=== PATIENT | male | born 1975 | race African-American/Black ===

== ENCOUNTER 2017-02-21 10:53 | Emergency (ER) | payer SELFPAY ==
--- NOTE | 2017-02-21 11:30 | RAD ---
AP PELVIS 1 VIEW: Date: 02/21/17 HISTORY: Pelvic pain. Fall from horse. FINDINGS: Bilateral pedicle screws and vertical rods are in place at the S1-2 levels. No perihardware lucency is evident. There are mild degenerative changes involving each hip. Sacral ala and pelvic rings are intact. IMPRESSION: Postoperative and mild degenerative changes. No acute osseous abnormalities are demonstrated. POS: [facility]
== END 2017-02-21 11:39 | disposition home or self-care (01) ==
LOC: BURERS 10:53
DX: S30.1XXA Contusion of abdominal wall, initial encounter (principal); J45.909 Unspecified asthma, uncomplicated; F17.210 Nicotine dependence, cigarettes, uncomplicated; Z79.891 Long term (current) use of opiate analgesic; Z79.899 Other long term (current) drug therapy; V80.919A Animal-rider injured in unspecified transport accident, initial encounter; Y93.52 Activity, horseback riding
CPT/HCPCS: 72170

== ENCOUNTER → 2017-11-11 | Emergency (ER) | payer OTHER, SELFPAY | LOC: BURERS 09:41 | DX: F07.81 Postconcussional syndrome (principal); G89.29 Other chronic pain; J45.909 Unspecified asthma, uncomplicated; F17.210 Nicotine dependence, cigarettes, uncomplicated; Z79.891 Long term (current) use of opiate analgesic; Z79.899 Other long term (current) drug therapy ==

== ENCOUNTER 2018-04-07 23:02 | Emergency (ER) | payer OTHER, SELFPAY ==
[~2018-04-07 23:02] MED LIST: Iopamidol 370 76% 100 ML VIAL ONE
[2018-04-07] MEDS ORDERED: Morphine 4 MG/ML Carpuject ONE (23:25)
[2018-04-07 23:46] LABS: ALT (SGPT) 24 U/L (8-55); AST (SGOT) 18 U/L (5-34); Alkaline Phosphatase 71 U/L (40-150); Anion Gap 13 mmol/L (10-20); BUN (Urea Nitrogen) 11 mg/dL (8.9-20.6); Bilirubin, Total Less than 0.2 mg/dL (0.2-1.2); Calc. Creatinine Clearance 0 mL/min (70-130); Calcium 9.3 mg/dL (7.8-10.44); Carbon Dioxide 23 mmol/L (22-29); Chloride 106 mmol/L (98-107); Estimated GFR-MDRD Greater than 90; Globulin 3.1 g/dL (2.4-3.5); Glucose 99 mg/dL (70-105); Lipase 33 U/L (8-78); Potassium 3.8 mmol/L (3.5-5.1); Protein, Total 7.1 g/dL (6.0-8.3); Sodium 138 mmol/L (136-145)
[2018-04-07 23:49] LABS: Eosinophils 2 % (0-10); Hemoglobin 15.2 g/dL (14.0-18.0); Large Platelets SLIGHT; Lymphocytes 39 % (21-51); MDiff Complete? YES; Mean Corpuscular Hemoglobin 28.4 pg (27.0-31.0); Mean Platelet Volume 15.5 fL (7.4-10.4); Monocytes 8 % (0-10); Neutrophil 50 % (42-75); PLT Morphology Comment Appears Adequate; Platelet Count 150 thou/uL (130-400); RBC Distribution Width 13.2 % (11.5-14.5); RBC Morphology Normal; Red Blood Cell (RBC) Count 5.35 mill/uL (4.70-6.10); Vacuoles SLIGHT; White Blood Cell (WBC) Count 6.8 thou/uL (4.8-10.8)
[2018-04-08] LABS: Bilirubin Negative (Negative); Blood, Urine Trace (Negative); Clarity Clear (Clear); Glucose, Urine (Dipstick) Negative (Negative); Leukocyte Negative (Negative); Nitrite Negative (Negative); Protein, Urine (Dipstick) Negative (Neg-Trace); Urobilinogen 0.2 mg/dL (0.2-1.0)
[2018-04-08 00:05] LABS: Bacteria/HPF None Seen HPF (None Seen); RBC/HPF 0-3 HPF (0-3); Squamous Epithelial None Seen HPF (0-3); WBC/HPF None Seen HPF (0-3)
[2018-04-08] MEDS ORDERED: methylPREDNISolone Sod Succ/PF 125 MG/2 ML VIAL ONE (01:03)
[2018-04-08] MEDS ORDERED: Morphine 4 MG/ML Carpuject ONE (01:05)
--- NOTE | 2018-04-08 09:15 | CT ---
PRELIMINARY REPORT/[facility]/EMERGENTY AFTER-HOURS PROCEDURE Addendum created by Sony Baptiste MD on 04/08/2018 1:44 AM Central Time ([place] & [place]) ADDENDUM: Typographical error within the stomach and bowel section of the findings, as well as in impression #1 as follows: Please replace references to "arteritis" with "diverticulitis." These results were discu ssed with Dr. Fuentes at 11:44 PM 04/07/18. Initial Report created on 04/08/2018 12:32 AM Central Time ([place] & [place]) EXAM: CT Abdomen and Pelvis With Intravenous Contrast CLINICAL HISTORY: 42 years old, male; Pain; Abdominal pain; Other: Rlq; Prior surgery; Surgery date: 6+ months; Surgery type: Back surg 2006; Patient HX: Onset today rlq pain TECHNIQUE: Axial computed tomography images of the abdomen and pelvis with intravenous contrast. All CT scans at this facility use at least one of these dose optimization techniques: automated exposure control; mA and/or kV adjustment per patient size (includes targeted exams where dose is matched to clinical indication); or iterative reconstruction. CONTRAST: 95 mL of ISOVIEW 370 administered intravenously. COMPARISON: No relevant prior studies available. FINDINGS: Lung bases: Normal. No mass. No consolidation. ABDOMEN: Liver: Normal. Gallbladder and bile ducts: Normal. Pancreas: Normal. Spleen: Normal. Adrenals: Normal. Kidneys and ureters: Normal. Stomach and bowel: Colonic diverticulosis, with acute arteritis involving the distal ascending colon, where there is wall thickening in addition associated inflammatory stranding. No perforation or absc ess. PELVIS: Appendix: Appendix normal. Bladder: Normal. Reproductive: Normal as visualized. ABDOMEN and PELVIS: Intraperitoneal space: Normal. No free air. No significant fluid collection. Bones/joints: L5-S1 discectomy and posterior fusion changes, without acute complications. No dislocat ion. Soft tissues: Normal. Vasculature: Multiple phleboliths in the pelvis. No abdominal aortic aneurysm. Lymph nodes: Normal. IMPRESSION: 1. Colonic diverticulosis, with acute arteritis involving the distal ascending colon, where there is wall thickening in addition associated inflammatory stranding. No perforation or abscess. Recommend followup after therapy to ensure resolution of these findings, as colonic carcinoma could have a behzad lar appearance. 2. Incidental/non-acute findings are described above. Thank you for allowing us to participate in the care of your patient. Dictated and Authenticated by: Sony Baptiste MD 04/08/2018 12:32 AM Central Time ([place] & [place]) FINAL REPORT CT ABDOMEN AND PELVIS WITH CONTRAST: Date: 04/07/[address] of the abdomen and pelvis was performed for evaluation of abdominal pain. Axial slices were acquired, and coronal and sagittal reconstructions were done. Comparison made with the 10/12/17 study from [facility]. FINDINGS: The lung bases are clear. Liver, spleen, pancreas, adrenal glands, kidneys, gallbladder, and abdominal aorta all appear normal. Colonic diverticulosis is present, along with inflammatory change around the proximal ascending colon just beneath the liver. This is a new finding and most likely represents diverticulitis. The bowel e lsewhere showed no dilation or worrisome change. No free air or free fluid seen. CT of the pelvis shows no pelvic masses, fluid collections, or inflammatory changes. There has been p rior fusion of L5-S1 with pedicle screws. IMPRESSION: Findings most consistent with diverticulitis involving the proximal ascending colon just beneath the liver. Follow-up after resolution should be done to ensure there is no other underlying pathology. Report in agreement with preliminary reading by Delon. POS: [facility]
[2018-04-10 04:17] LABS: Chlamydia by PCR Not Detected (NotDetected); GC by PCR Not Detected (NotDetected)
== END 2018-04-08 01:30 | disposition short-term general hospital (02) ==
LOC: BURERS 23:02
DX: K57.32 Diverticulitis of large intestine without perforation or abscess without bleeding (principal); I10 Essential (primary) hypertension; J45.909 Unspecified asthma, uncomplicated; F17.210 Nicotine dependence, cigarettes, uncomplicated; Z79.899 Other long term (current) drug therapy
CPT/HCPCS: 74177; 80053; 81003; 81015; 83605; 83690; 85025; 85652; 87491; 87591; 96374; 96375; 96376; A4216; J2270; J2930

== ENCOUNTER 2018-04-13 10:57 | Emergency (ER) | payer SELFPAY ==
[2018-04-13] MEDS ORDERED: Ketorolac Tromethamine 30 MG/ML VIAL ONE (11:28)
[2018-04-13 11:34] LABS: Bilirubin Negative (Negative); Blood, Urine Negative (Negative); Clarity Clear (Clear); Glucose, Urine (Dipstick) Negative (Negative); Leukocyte Trace (Negative); Nitrite Negative (Negative); Protein, Urine (Dipstick) Negative (Neg-Trace); Specific Gravity, Urine 1.025 (1.005-1.030); Urobilinogen 0.2 mg/dL (0.2-1.0); pH, Urine 6.5 (5.0-9.0)
[2018-04-13 11:46] LABS: ALT (SGPT) 28 U/L (8-55); AST (SGOT) 21 U/L (5-34); Albumin 3.9 g/dL (3.5-5.0); Alkaline Phosphatase 72 U/L (40-150); Anion Gap 12 mmol/L (10-20); BUN (Urea Nitrogen) 12 mg/dL (8.9-20.6); Bilirubin, Total 0.2 mg/dL (0.2-1.2); Calc. Creatinine Clearance 0 mL/min (70-130); Carbon Dioxide 22 mmol/L (22-29); Chloride 107 mmol/L (98-107); Estimated GFR-MDRD 89; Globulin 2.9 g/dL (2.4-3.5); Glucose 115 mg/dL (70-105); Lipase 40 U/L (8-78); Protein, Total 6.8 g/dL (6.0-8.3); Sodium 137 mmol/L (136-145)
[2018-04-13 11:47] LABS: CKMB 2.7 ng/mL (0-6.6); Troponin I Less than 0.010 ng/mL (< 0.028)
[2018-04-13 11:56] LABS: Bacteria/HPF Rare-Few HPF (None Seen); RBC/HPF None Seen HPF (0-3); Squamous Epithelial 0-3 HPF (0-3); WBC/HPF 0-3 HPF (0-3)
[2018-04-13 11:58] LABS: #Basophils 0.1 thou/uL (0.0-0.2); #Eosinphils 0.2 thou/uL (0.0-0.7); #Monocytes 0.4 thou/uL (0.11-0.59); #Neutrophils 3.2 thou/uL (1.40-6.50); %Basophils 1.7 % (0.0-1.0); %Eosinophils 2.9 % (0.0-10.0); %Lymphocytes 34.1 % (21.0-51.0); %Monocytes 6.9 % (0.0-10.0); %Neutrophils 54.3 % (42.0-75.0); Hemoglobin 15.7 g/dL (14.0-18.0); Mean Corpuscular HGB CONC 33.3 g/dL (32.0-36.0); Mean Corpuscular Hemoglobin 28.3 pg (27.0-31.0); Mean Corpuscular Volume 85.1 fL (78.0-98.0); Mean Platelet Volume 13.8 fL (7.4-10.4); Platelet Count 149 thou/uL (130-400); RBC Distribution Width 13.4 % (11.5-14.5); Red Blood Cell (RBC) Count 5.56 mill/uL (4.70-6.10); White Blood Cell (WBC) Count 5.8 thou/uL (4.8-10.8)
--- NOTE | 2018-04-13 20:11 | RAD ---
CHEST TWO VIEWS: 04/13/2018 COMPARISON: 10/12/2017 FINDINGS: The heart is normal in size, and the lungs are clear. No infiltrate or effusion is seen. The trache a is midline, and the mediastinum appears normal. IMPRESSION: No acute thoracic findings. POS: [facility]
--- NOTE | 2018-04-13 20:14 | CT ---
CT ABDOMEN AND PELVIS WITH CONTRAST: 04/13/2018 COMPARISON: Prior CT, dated 04/07/2018 FINDINGS: ABDOMEN: The stranding around the upper ascending colon has markedly decreased in the interval. Div erticula are still noted in the colon, here and elsewhere. No new inflammatory changes are seen. No free air or free fluid is present. There is no distention of bowel to suggest obstruction. The lung bases are clear. The liver, spleen, pancreas, gallbladder, adrenal glands, kidneys, and abd ominal aorta show no acute findings. PELVIS: No pelvic mass, inflammatory change, or free fluid. IMPRESSION: Improvement in the right upper quadrant inflammatory process since the prior scan. There is now mini mal residual inflammatory change around the diverticula in the upper ascending colon. POS: HOME
== END 2018-04-13 12:15 | disposition home or self-care (01) ==
LOC: BURERS 10:57
DX: K57.32 Diverticulitis of large intestine without perforation or abscess without bleeding (principal); I10 Essential (primary) hypertension; J45.909 Unspecified asthma, uncomplicated; F17.210 Nicotine dependence, cigarettes, uncomplicated; Z79.899 Other long term (current) drug therapy
CPT/HCPCS: 71046; 74177; 80053; 81003; 81015; 82553; 83690; 84484; 85025; 93005; 96374; J1885

== ENCOUNTER 2018-08-31 07:51 | Emergency (ER) | payer SELFPAY ==
[2018-08-31] MEDS ORDERED: AMOXicillin 250 MG CAP ONE (08:20)
== END 2018-08-31 08:22 | disposition home or self-care (01) ==
LOC: BURERS 07:51
DX: K04.7 Periapical abscess without sinus (principal); I10 Essential (primary) hypertension; J45.909 Unspecified asthma, uncomplicated; M54.9 Dorsalgia, unspecified; G89.29 Other chronic pain; F17.210 Nicotine dependence, cigarettes, uncomplicated; Z79.899 Other long term (current) drug therapy
CPT/HCPCS: 99282

== ENCOUNTER 2021-03-15 09:08 | Outpatient (CLI) | payer BC | END 2021-03-15 09:09 | disposition home or self-care (01) | LOC: BURRAD 09:08 | PROVIDERS: ATTEND Family Medicine | DX: S80.02XA Contusion of left knee, initial encounter (principal) ==

== ENCOUNTER 2021-05-09 15:08 | Emergency (ER) | payer BC ==
[2021-05-09 16:02] LABS: Bilirubin Negative (Negative); Blood, Urine Trace (Negative); Clarity Clear (Clear); Glucose, Urine (Dipstick) Negative (Negative); Ketone, Urine Negative (Negative); Leukocyte Negative (Negative); Nitrite Negative (Negative); Protein, Urine (Dipstick) Negative (Neg-Trace); Urobilinogen 0.2 mg/dL (Less than 2); pH, Urine 7.5 (5.0-9.0)
[2021-05-09 16:04] LABS: Bacteria/HPF 1+ HPF (None Seen); RBC/HPF 0-3 HPF (0-3); Squamous Epithelial 0-3 HPF (0-3); WBC/HPF 0-3 HPF (0-3)
[2021-05-09 16:09] LABS: ALT (SGPT) 24 U/L (8-55); AST (SGOT) 26 U/L (5-34); Albumin 4.2 g/dL (3.5-5.0); Alkaline Phosphatase 71 U/L (40-110); Anion Gap 13 mmol/L (10-20); BUN (Urea Nitrogen) 13 mg/dL (8.9-20.6); Bilirubin, Total 0.4 mg/dL (0.2-1.2); Calc. Creatinine Clearance 0 mL/min (70-130); Calcium 10.6 mg/dL (7.8-10.44); Carbon Dioxide 29 mmol/L (22-29); Chloride 102 mmol/L (98-107); Globulin 3.2 g/dL (2.4-3.5); Glucose 100 mg/dL (70-105); Lipase 149 U/L (8-78); Potassium 4.5 mmol/L (3.5-5.1); Protein, Total 7.4 g/dL (6.0-8.3); Sodium 139 mmol/L (136-145)
[2021-05-09 16:12] LABS: #Basophils 0.1 thou/uL (0.0-0.2); #Eosinphils 0.1 thou/uL (0.0-0.7); #Lymphocytes 2.5 thou/uL (1.20-3.40); #Monocytes 0.6 thou/uL (0.11-0.59); #Neutrophils 3.9 thou/uL (1.40-6.50); %Basophils 1.5 % (0.0-1.0); %Eosinophils 1.7 % (0.0-10.0); %Lymphocytes 34.5 % (21.0-51.0); %Monocytes 8.4 % (0.0-10.0); Hemoglobin 15.7 g/dL (14.0-18.0); Large Platelets SLIGHT; MDiff Complete? YES; Mean Corpuscular HGB CONC 32.6 g/dL (32.0-36.0); Mean Corpuscular Volume 88.9 fL (78.0-98.0); Mean Platelet Volume 13.2 fL (7.4-10.4); Platelet Count 164 thou/uL (130-400); Platelet Morphology Comment Appears Adequate; RBC Distribution Width 13.3 % (11.5-14.5); Red Blood Cell (RBC) Count 5.43 mill/uL (4.70-6.10); White Blood Cell (WBC) Count 7.3 thou/uL (4.8-10.8)
[2021-05-09] MEDS ORDERED: Pantoprazole 40 MG VIAL ONE (16:33)
[2021-05-09] MEDS ORDERED: Iopamidol 370 76% 100 ML VIAL ONE (16:59)
== END 2021-05-09 16:52 | disposition home or self-care (01) ==
LOC: BURERS 15:08
DX: K85.90 Acute pancreatitis without necrosis or infection, unspecified (principal); G89.29 Other chronic pain; M25.562 Pain in left knee; M54.50 Low back pain, unspecified; R06.2 Wheezing; I10 Essential (primary) hypertension; F17.210 Nicotine dependence, cigarettes, uncomplicated
CPT/HCPCS: 36415; 71046; 74177; 80053; 81003; 81015; 83605; 83690; 84484; 85025; 96374; C9113; Q9967